=== PATIENT | male | born 1970 | race Caucasian/White ===

== ENCOUNTER 2021-07-25 07:11 | Outpatient (REF) | payer OTHER, SELFPAY ==
[2021-07-25 07:40] LABS: Hematocrit 47.4 % (42-52); Hemoglobin 16.6 g/dl (14.0-18.0); Mean Corpuscular Hemoglobin 30.9 pg (27.0-33.0); Mean Corpuscular Volume 88.3 fL (80-98); Mean Platelet Volume 9.1 fL (9.4-12.4); Platelet Count 319 X10*3/uL (160-400); Red Blood Count 5.37 X10*6/uL (4.60-5.80); Red Cell Distribution Width 12.7 % (11.0-16.0); White Blood Count 6.8 X10*3/uL (4.8-10.8)
[2021-07-25 08:12] LABS: Alanine Aminotransferase 19 U/L (0-40); Albumin Level 4.8 g/dL (3.5-5.0); Alkaline Phosphatase 60 U/L (39-117); Anion Gap 13 (12-20); Aspartate Amino Transferase 19 U/L (5-37); Bilirubin Total 1.2 mg/dL (0.0-1.0); Blood Urea Nitrogen 16 mg/dL (9-16); Calcium 9.9 mg/dL (8.4-10.2); Carbon Dioxide 28 mmol/L (22-29); Chloride 103 mmol/L (96-108); Cholesterol 219 mg/dL; Estimated Glomerular Filt Rate > 60; Glucose Fasting 135 mg/dL (60-99); HDL Cholesterol 57 mg/dL; LDL Cholesterol Calculated 130 mg/dl; Potassium 4.4 mmol/L (3.3-5.1); Sodium 140 mmol/L (135-145); Total Protein 7.2 g/dL (6.5-8.0); Triglycerides 161 mg/dL
[2021-07-25 08:35] LABS: Prostate Specific Antigen Scr 0.77 ng/mL (<0.05-4.0); TSH reflex Free T4 1.46 uIU/mL (0.32-4.0)
== END 2021-07-25 07:12 | disposition home or self-care (01) ==
LOC: HO.LAB 07:11
PROVIDERS: PCP Physician Assistant; Visit Provider Physician Assistant
DX: E78.5 Hyperlipidemia, unspecified (principal); I10 Essential (primary) hypertension; Z12.5 Encounter for screening for malignant neoplasm of prostate
CPT/HCPCS: 36415; 80053; 80061; 84153; 84443; 85027

== ENCOUNTER 2022-02-06 06:08 | Outpatient (REF) | payer OTHER, SELFPAY ==
[2022-02-06 06:56] LABS: Hematocrit 48.6 % (42.0-52.0); Hemoglobin 16.7 g/dl (14.0-18.0); Mean Corpuscular HGB Conc 34.4 g/dl (31.0-36.0); Mean Corpuscular Hemoglobin 30.4 pg (27.0-33.0); Mean Corpuscular Volume 88.4 fL (80.0-98.0); Mean Platelet Volume 9.6 fL (9.4-12.4); Platelet Count 345 X10*3/uL (160-400); Red Cell Distribution Width 12.4 % (11.0-16.0); White Blood Count 6.7 X10*3/uL (4.8-10.8)
[2022-02-06 07:10] LABS: Alanine Aminotransferase 25 U/L (0-40); Albumin Level 4.8 g/dL (3.5-5.0); Alkaline Phosphatase 58 U/L (39-117); Anion Gap 13 (12-20); Aspartate Amino Transferase 23 U/L (5-37); Bilirubin Total 0.9 mg/dL (0.0-1.0); Blood Urea Nitrogen 21 mg/dL (9-16); Calcium 10.2 mg/dL (8.4-10.2); Carbon Dioxide 29 mmol/L (22-29); Chloride 101 mmol/L (96-108); Cholesterol 198 mg/dL; Estimated Glomerular Filt Rate > 60; Glucose Fasting 126 mg/dL (60-99); HDL Cholesterol 55 mg/dL; LDL Cholesterol Calculated 118 mg/dl; Potassium 3.9 mmol/L (3.3-5.1); Sodium 139 mmol/L (135-145); Total Protein 7.3 g/dL (6.5-8.0); Triglycerides 128 mg/dL
[2022-02-06 07:26] LABS: Estimated Average Glucose 105 mg/dL; Hemoglobin A1c % 5.3 %
[2022-02-06 07:32] LABS: TSH reflex Free T4 1.32 uIU/mL (0.32-4.0)
[2022-02-06 08:18] LABS: Creatinine Urine 248.83 mg/dL; Microalbum/Creatinine Ratio Ur 128.1 ug/mg cr
== END 2022-02-06 06:09 | disposition home or self-care (01) ==
LOC: HO.LAB 06:08
PROVIDERS: PCP Physician Assistant; Visit Provider Physician Assistant
DX: R73.09 Other abnormal glucose (principal); I10 Essential (primary) hypertension; E78.5 Hyperlipidemia, unspecified
CPT/HCPCS: 36415; 80053; 80061; 82043; 83036; 84443; 85027

== ENCOUNTER 2023-07-16 05:55 | Outpatient (REF) | payer OTHER, SELFPAY ==
[2023-07-16 07:19] LABS: Hematocrit 48.4 % (42.0-52.0); Mean Corpuscular HGB Conc 35.1 g/dl (31.0-36.0); Mean Corpuscular Volume 88.2 fL (80.0-98.0); Mean Platelet Volume 9.8 fL (9.4-12.4); Platelet Count 328 X10*3/uL (160-400); Red Blood Count 5.49 X10*6/uL (4.60-5.80); Red Cell Distribution Width 12.7 % (11.0-16.0); White Blood Count 5.7 X10*3/uL (4.8-10.8)
[2023-07-16 07:35] LABS: Estimated Average Glucose 103 mg/dL; Hemoglobin A1C 152.1838 umol/L; Hemoglobin A1c % 5.2 % (<6.0)
[2023-07-16 07:42] LABS: Alanine Aminotransferase 19 U/L (0-40); Albumin Level 4.9 g/dL (3.5-5.0); Alkaline Phosphatase 56 U/L (39-117); Anion Gap 14 (12-20); Aspartate Amino Transferase 23 U/L (5-37); Bilirubin Total 0.8 mg/dL (0.0-1.0); Blood Urea Nitrogen 20 mg/dL (9-16); Calcium 10.3 mg/dL (8.4-10.2); Carbon Dioxide 29 mmol/L (22-29); Chloride 101 mmol/L (96-108); Cholesterol 198 mg/dL (<200); Estimated Glomerular Filt Rate > 60; Glucose Fasting 125 mg/dL (60-99); HDL Cholesterol 58 mg/dL (>40); LDL Cholesterol Calculated 125 mg/dL (<100); Potassium 3.7 mmol/L (3.3-5.1); Sodium 140 mmol/L (135-145); Total Protein 7.4 g/dL (6.5-8.0); Triglycerides 76 mg/dL (<150)
[2023-07-16 07:58] LABS: TSH reflex Free T4 2.11 uIU/mL (0.32-4.0)
[2023-07-16 10:32] LABS: Creatinine Urine 64.22 mg/dL; Microalbum/Creatinine Ratio Ur 141.7 ug/mg cr (<30)
== END 2023-07-16 05:56 | disposition home or self-care (01) ==
LOC: HO.LAB 05:55
PROVIDERS: PCP Physician Assistant; Visit Provider Physician Assistant
DX: I10 Essential (primary) hypertension (principal); E78.5 Hyperlipidemia, unspecified; R73.09 Other abnormal glucose
CPT/HCPCS: 36415; 80053; 80061; 82043; 82570; 83036; 84443; 85027

== ENCOUNTER 2023-08-09 07:45 | Outpatient (AMB) | payer OTHER, SELFPAY ==
--- NOTE | 2023-08-09 07:52 | MHC.PC.OV ---
Vital Signs 08/09/23 07:54 Height 5 ft 6 in Weight 192 lb BMI 31.0 BP 152/86 H Blood Pressure Location Lt brachial Position Sitting Pulse 110 H Pulse Oximetry (%) 99 Oxygen Delivery Method Room Air Intake Visit Reasons: PE Intake Note: Patient here for a physical exam Ticket Dispatcher Required: No Accompanied by: Self / Same As Patient Allergies YO Inhibitors Allergy (Unknown, Verified 08/09/23 08:05) Cough Seasonal Allergies Allergy (Unknown, Verified 08/09/23 08:05) Cough Medication List - Last Reconciled 08/09/23 by Shane Clayton PA-C amlodipine 10 mg PO DAILY fluticasone propion-salmeterol 250-50 mcg/dose (Wixela Inhub) 1 ea PO BID hydrochlorothiazide 25 mg PO DAILY simvastatin 20 mg PO DAILY Tobacco use date assessed: 08/09/23 Dental Screening Dental Screen Date: 08/09/23 Did you have a dental visit in the last 12 months?: No Did you have a dental problem in the last 6 months where you did not have access to dental care?: No Was dental information given to patient?: Patient has dentist HPI PE HPI Details Patient is a 52-year-old male here today for routine annual physical. Patient has a past medical history significant for hypertension, asthma, hyperlipidemia, impaired glucose metabolism. Concern--> reports having intermittent vertigo over the last 4 months to which he attributes to his nasal and sinus issues. Has been getting better. Also reports developing thrush over his tongue due to the use of his inhaler. .. HTN: Blood pressure elevated today in office. Does have white coat hypertension reports blood pressures at home have been 120s to 130 systolic. The [facility] denies any head discomfort, chest discomfort, dizziness or shortness of breath. .. Impaired glucose metabolism: Most recent fasting blood sugar elevated, A1c acceptable. He has started a low carbohydrate diet. .. Asthma: Patient's asthma has been well controlled with current maintenance inhaler taken once a day. He Reports his allergies do exacerbate his asthma though has been fairly well controlled with allergy medication. .. HLD: Patient's fasting lipid panel acceptable with current dose of statin therapy. Colorectal cancer screening: Colonoscopy up-to-date- Done in 2019 repeat 10 years. Vaccines: Up-to-date with COVID and tetanus vaccines, considering shingles vaccine, Considering PCV Laboratory Tests 02/06/22 07/16/23 07/16/23 06:15 06:00 06:02 RBC 5.49 Fasting Glucose 125 H Hemoglobin A1c % 5.2 Cholesterol 198 LDL Cholesterol, C alc 125 H Urine Microalbumin 319.0 91.0 PFSH Surgical History No pertinent past surgical history Family History Sister Heart attack, Onset Age: 54 Social History Housing: House Alcohol intake: current Alcohol intake frequency: holidays/special occasions only Patient Tobacco Use Status: Never used Tobacco e-Cigarette/Vaping Use: Never Used Second Hand Smoke Exposure: No service: No Current occupational status: employed Current occupation: [employer] Current occupational exposures/hazards: No Cognitive needs: No Hearing needs: No Vision needs: No Questionnaire PHQ-9 Over the last 2 weeks, how often have you been bothered by any of the following problems? 1. Little interest or pleasure in doing things: not at all 2. Feeling down, depressed, or hopeless: not at all 3. Trouble falling or staying asleep, or sleeping too much: not at all 4. Feeling tired or having little energy: not at all 5. Poor appetite or overeating: not at all 6. Feeling bad about yourself - or that you are a failure or have let yourself or your family down: not at all 7. Trouble concentrating on things, such as reading the newspaper or watching television: not at all 8. Moving or speaking so slowly that other people could have noticed. Or the opposite - being so fidgety or restless that you have been moving around a lot more than usual: not at all 9. Thoughts that you would be better off or of hurting yourself in some way: not at all Total score: 0 Depression Screening Interpretation: Negative 01416 - PHQ-9 Billing: Yes Source: Developed by Drs. Eran Finch, Elisabet Pérez, Vicente Carter and colleagues, with an educational maximo from [employer]. Thrive Questionnaire Date Thrive assessed: 08/09/23 I am a: Patient What is your living situation today?: I have a steady place to live Within the past 12 months, did the food you bought not last and you didn't have the money to get more?: Never true Within the past 12 months, did you worry whether your food would run out before you got money to buy more?: Never true Do you have trouble paying for medicines?: No Do you have trouble getting transportation to medical appointments?: No Do you have trouble paying your heating and electricity bill?: No Do you have trouble taking care of your child, family member or friend?: No Do you have trouble with day-to-day activities such as bathing, preparing meals, shopping, managing finances, etc.?: No Are you currently unemployed and looking for a job?: No Are you interested in more education?: No Please select the resources that you would like help with: None Currently or been in a relationship where the following occur: no concerns reported AUDIT C Alcohol Use Questionnaire (AUDIT-C) 1. How often do you have a drink containing alcohol?: Monthly or less 2. How many drinks containing alcohol do you have on a typical day when you are drinking?: 1 or 2 3. How often do you have six or more drinks on one occasion?: Never Total Score: 1 IRASEMA-7 AMB Questionnaire IRASEMA-7 Date IRASEMA - 7 assessed: 08/09/23 Feeling nervous, anxious, or on edge: 1 = Several days Not being able to stop or control worryin = Not at all Worrying too much about different things: 0 = Not at all Trouble relaxin = Not at all Being so restless that it is hard to sit still: 0 = Not at all Becoming easily annoyed or irritable: 0 = Not at all Feeling afraid as if something awful might happen: 0 = Not at all Total IRASEMA-7 score (0-4 normal; 5-9 mild; 10-14 moderate; 15-21 severe): 1 Source: Developed by Drs. Eran Finch, Elisabet Pérez, Vicente Carter and colleagues, with an educational maximo from [employer]. IRASEMA-7 Assessment Billing IRASEMA-7 Assessment Tool: IRASEMA-7 Assessment 60912 ACT Questionnaire In the past 4 weeks, how much of the time did your asthma keep you from getting as much done at work, school or at home?: None of the time During the past 4 weeks, how often have you had shortness of breath?: Not at all During the past 4 weeks, how often did your asthma symptoms wake you up at night or earlier than usual in the morning?: Not at all During the past 4 weeks, how often have you had to use your rescue inhaler or nebulizer medication?: Not at all How would you rate your asthma control during the past 4 weeks?: Completely controlled ACT Interpretation: Negative Score: 25 Review of Systems Const Denies body aches, Denies chills, Denies excessive sweating, Denies fatigue, Denies fever(s) and Denies headache(s) Eyes Denies blurry vision ENT Denies dysphagia, Denies vertigo, Denies dizziness, Denies headache(s), Denies hearing loss and Denies tinnitus Card Denies chest pain, Denies chest pain with activity, Denies syncope, Denies irregular heart rhythm and Denies dyspnea Resp Denies chest congestion, Denies cough, Denies hemoptysis, Denies dyspnea and Denies wheezing GI Denies abdominal pain, Denies melena, Denies hematochezia, Denies coffee ground emesis, Denies dysphagia, Denies diarrhea, Denies nausea and Denies vomiting Denies difficulty urinating, Denies dysuria, Denies urinary frequency, Denies urinary hesitancy and Denies urinary urgency Musc Denies arthralgias, Denies limited range of motion, Denies muscle cramps and Denies muscle weakness Skin/Breast Denies rash and Denies skin ulcer Neuro Denies Abnormal speech present, Denies confusion, Denies vertigo, Denies dizziness, Denies syncope, Denies headache(s), Denies memory loss and Denies seizure-like activity Psych Denies anxiety, Denies confusion, Denies depression, Denies memory loss, Denies panic attacks and Denies paranoia Endo Denies excessive sweating, Denies fatigue, Denies flushing, Denies polydipsia and Denies polyuria Aller/Immun Denies wheezing Physical exam (Primary Care) Vital Signs: Last Vital Signs Pulse 110 H 08/09/23 07:54 BP 152/86 H 08/09/23 07:54 Pulse Ox 99 08/09/23 07:54 Oxygen Delivery Method Room Air 08/09/23 07:54 BMI result Body Mass Index 31.0 BMI Assessment/Plan discussion: High Tobacco/Smoking Status: Tobacco use Status Tobacco use date assessed 08/09/23 08/09/23 08:03 Patient Tobacco Use Status Never used Tobacco 08/09/23 08:03 e-Cigarette/Vaping Use Never Used 08/09/23 08:03 PHQ-9: PHQ-9 Score PHQ-9: Total score 0 08/09/23 08:30 Depression Screening Interpretation: Negative Thrive Assessment: Date of Thrive Assessment Date Thrive assessed 08/09/23 08/09/23 08:03 Currently or been in a relationship where the following occur: no concerns reported Const General: cooperative, comfortable, no acute distress, alert and awake; No confusion Orientation/consciousness: oriented to person, oriented to place, patient oriented x3 and No confusion HENMT Head: Yes normocephalic Ears: external ears normal and TM's normal bilaterally Face and sinus: No sinus tenderness Mouth: Normal oral and palatal mucosa present and tongue normal Teeth and gingiva: dentition normal and gingiva normal Throat: Yes posterior oropharynx normal, Yes tonsils normal and Yes uvula midline Eyes Conjunctivae: conjunctivae normal Sclerae: sclerae normal Pupils: Equal, round and reactive pupils present EOM: EOMs intact bilaterally Direct Ophthalmoscopy: No no photophobia Neck Neck: Yes no lymphadenopathy, No tender and Yes no JVD Thyroid: Thyroid normal Carotids: no bruits Chest Chest palpation & inspection: no tenderness Resp Effort & Inspection: normal respiratory effort, no audible wheezes, not labored and no stridor Auscultation: no crackles, no rales, no rhonchi and no wheezes Cardio Jugular venous distension: no JVD Rate: regular rate, not bradycardic and not tachycardic Rhythm: regular rhythm Bruits: no carotid bruits Peripheral pulses: Peripheral pulses 2+ throughout GI Inspection: Yes normal to inspection, No abdominal wall ecchymosis and No visible herniation Palpation (GI): Soft to palpation, nontender, no guarding, not rigid and No hepatosplenomegaly present Auscultation: normoactive bowel sounds General: Yes no CVA tenderness Back/Spine/Pelvis Back: no CVA tenderness and No back tenderness Cervical Spine: cervical ROM normal Thoracic/Lumbar Spine: thoracic and lumbar spine normal to inspection, straight leg raise negative bilaterally, No thoraco-lumbar ROM limited and No lumbar spinal tenderness Skin Lesions: no lesions Rashes: no rashes Wounds: no wounds Neuro General: oriented to person, oriented to place, patient oriented x3, CN's II-XI intact bilaterally and No confusion Cranial nerves: Yes Equal, round and reactive pupils present and Yes Normal accommodation reflex present Cognition (Neuro): normal cognition Speech: No Abnormal speech present Gait exam (Neuro): Normal gait present Motor exam (neuro): 5/5 motor strength present throughout Extrem Right upper extremity: full ROM; no cyanosis Left upper extremity: full ROM; no cyanosis Right lower extremity: no edema Left lower extremity: no edema Psych Appearance: grossly normal Mental Status: mental status grossly normal Affect: normal affect Attitude: cooperative Thought process: Normal thought process present Office Procedures Flu Questionnaire Does the patient have a severe egg allergy?: No Immunizations flu vacc [id number] 6mos up(PF) 60 mcg(15 mcgx4)/0.5 mL IM syringe Performing Provider: Shane Clayton PA-C [facility] Documented (not given) by: ALIE Travis on 08/09/23 08:35 Reason Not Given: Patient Refused Assessment and Plan Assessment & Plan (1) Annual physical exam: Code(s): Z00.00 - Encounter for general adult medical examination without abnormal findings (2) HTN (hypertension): Code(s): I10 - Essential (primary) hypertension Qualifiers: Hypertension type: primary hypertension Qualified Code(s): I10 - Essential (primary) hypertension Plan: Patient's blood pressure elevated today in office, always been elevated when he comes into the doctor's office. He reports that home blood pressures are 120s to 130 systolic. He reports he does get very anxious coming into the doctor's office, elevation in his heart rate is well. Goal blood pressure to be below 140/90 at home (3) Impaired glucose metabolism: Code(s): R73.09 - Other abnormal glucose Plan: Patient's fasting blood sugar elevated at 126 on last lab draw. A1c acceptable Advised on weight reduction and lifestyle modifications. (4) HLD (hyperlipidemia): Code(s): E78.5 - Hyperlipidemia, unspecified Qualifiers: Hyperlipidemia type: mixed hyperlipidemia Qualified Code(s): E78.2 - Mixed hyperlipidemia Plan: Patient's fasting lipids acceptable with current dose of statin therapy. Will continue current dose of statin therapy with goal LDL to be below 130. (5) Obese: Code(s): E66.9 - Obesity, unspecified Qualifiers: Obesity type: due to excess calories Obesity classification: adult class 1 (BMI 30 - 34.9) Serious obesity comorbidity presence: without serious comorbidity Body mass index: BMI 31.0-31.9 Qualified Code(s): E66.09 - Other obesity due to excess calories; Z68.31 - Body mass index [BMI] 31.0-31.9, adult Plan: Patient has managed to lose a few lb since last office visit. Has been working on being more physically active and adapting better eating habits. He does understand his BMI still remains a little above 30. (6) IRASEMA (generalized anxiety disorder): Code(s): F41.1 - Generalized anxiety disorder Plan: Patient does have situational anxiety, has been able to manage without medication at this time. (7) Thrush: Code(s): B37.0 - Candidal stomatitis Plan: Has developed thrush from the use of his inhaler. Has been trying to manage on his own though would like treatment. (8) BPPV (benign paroxysmal positional vertigo): Code(s): H81.10 - Benign paroxysmal vertigo, unspecified ear Qualifiers: Laterality: bilateral Qualified Code(s): H81.13 - Benign paroxysmal vertigo, bilateral Plan: Reports having sinus issues, has been suffering with positional vertigo over the last 4 months. Will trial meclizine on a p.r.n. basis for dizziness. Advised about trying vestibular therapy and patient will consider. Orders: Orders Lipid Panel 11 Months I10 - Essential (primary) hypertension Complete Blood Count no Diff 11 Months I10 - Essential (primary) hypertension Influenza [id number] Immunization Today Z23 - Encounter for immunization Microalbumin, Random (w Creat) 11 Months I10 - Essential (primary) hypertension Comprehensive [place]. Panel Fast 11 Months I10 - Essential (primary) hypertension Prostate Specific Antigen Scr 11 Months I10 - Essential (primary) hypertension, Z12.5 - Encounter for screening for malignant neoplasm of prostate Medications: New fluconazole 100 mg PO DAILY 7 days 7 tabs 0RF B37.0 - Candidal stomatitis meclizine 12.5 mg PO TID 5 days PRN 15 tabs 0RF dizziness H81.10 - Benign paroxysmal vertigo, unspecified ear Coding Level of Care Code Est Pt Prev Care 40-64y([id number]) Diagnoses Annual physical exam Z00.00 Primary hypertension I10 Hypertension type: primary hypertension Impaired glucose metabolism R73.09 Mixed hyperlipidemia E78.2 Hyperlipidemia type: mixed hyperlipidemia Class 1 obesity due to excess calories without serious comorbidity with body mass index (BMI) of 31.0 to 31.9 in adult E66.09; Z68.31 Obesity type: due to excess calories Obesity classification: adult class 1 (BMI 30 - 34.9) Serious obesity comorbidity presence: without serious comorbidity Body mass index: BMI 31.0-31.9 IRASEMA (generalized anxiety disorder) F41.1 Thrush B37.0 Benign paroxysmal positional vertigo due to bilateral vestibular disorder H81.13 Laterality: bilateral Additional Codes IRASEMA-7 Assessment Billing - IRASEMA-7 Assessment Tool: IRASEMA-7 Assessment 56050 ([id number])
[2023-08-09 07:54] VITALS: BP 152/86; PULSE 110; O2SAT 99; BMI 31.0
== END 2023-08-09 08:28 | disposition home or self-care (01) ==
PROVIDERS: Visit Provider Physician Assistant
DX: Z00.00 Encounter for general adult medical examination without abnormal findings (principal); I10 Essential (primary) hypertension; R73.09 Other abnormal glucose; E78.2 Mixed hyperlipidemia; E66.09 Other obesity due to excess calories; Z68.31 Body mass index [BMI] 31.0-31.9, adult; F41.1 Generalized anxiety disorder; B37.0 Candidal stomatitis; H81.13 Benign paroxysmal vertigo, bilateral
CPT/HCPCS: 99396

== ENCOUNTER 2024-08-02 05:55 | Outpatient (REF) | payer BC, SELFPAY ==
[2024-08-02 07:33] LABS: Hematocrit 47.7 % (42.0-52.0); Mean Corpuscular HGB Conc 35.6 g/dl (31.0-36.0); Mean Corpuscular Hemoglobin 31.5 pg (27.0-33.0); Mean Corpuscular Volume 88.3 fL (80.0-98.0); Mean Platelet Volume 9.8 fL (9.4-12.4); Platelet Count 305 X10*3/uL (160-400); Red Cell Distribution Width 12.8 % (11.0-16.0); White Blood Count 5.4 X10*3/uL (4.8-10.8)
[2024-08-02 08:05] LABS: Creatinine Urine 44.74 mg/dL; Microalbum/Creatinine Ratio Ur 84.9 ug/mg cr (<30)
[2024-08-02 08:07] LABS: Alanine Aminotransferase 19 U/L (0-40); Albumin Level 4.8 g/dL (3.5-5.0); Alkaline Phosphatase 51 U/L (39-117); Anion Gap 15 (12-20); Aspartate Amino Transferase 24 U/L (5-37); Bilirubin Total 0.9 mg/dL (0.0-1.0); Blood Urea Nitrogen 17 mg/dL (9-16); Calcium 10.5 mg/dL (8.4-10.2); Carbon Dioxide 28 mmol/L (22-29); Chloride 101 mmol/L (96-108); Cholesterol 202 mg/dL (<200); Estimated Glomerular Filt Rate > 60; Glucose Fasting 120 mg/dL (60-99); HDL Cholesterol 62 mg/dL (>40); LDL Cholesterol Calculated 117 mg/dL (<100); Potassium 4.5 mmol/L (3.3-5.1); Sodium 139 mmol/L (135-145); Total Protein 7.6 g/dL (6.5-8.0); Triglycerides 116 mg/dL (<150)
[2024-08-02 08:16] LABS: Prostate Specific Antigen Scr 0.78 ng/mL (<0.05-4.0)
== END 2024-08-02 05:56 | disposition home or self-care (01) ==
LOC: HO.LAB 05:55
PROVIDERS: PCP Physician Assistant; Visit Provider Physician Assistant
DX: I10 Essential (primary) hypertension (principal); Z12.5 Encounter for screening for malignant neoplasm of prostate
CPT/HCPCS: 36415; 80053; 80061; 82043; 82570; 84153; 85027

== ENCOUNTER 2024-08-10 07:54 | Outpatient (AMB) | payer BC, SELFPAY ==
[2024-08-10 08:01] VITALS: BP 146/80; BMI 29.9
--- NOTE | 2024-08-10 08:01 | MHC.PC.OV ---
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 Accompanied by: Self / Same As Patient Allergies YO Inhibitors Allergy (Unknown, Verified 08/10/24 08:09) Cough Seasonal Allergies Allergy (Unknown, Verified 08/10/24 08:09) Cough Medication List - Last Reconciled 08/10/24 by Shane Clayton PA-C amlodipine 10 mg PO DAILY fluticasone propion-salmeterol 250-50 mcg/dose (Wixela Inhub) 1 ea PO BID hydrochlorothiazide 25 mg PO DAILY simvastatin 20 mg PO DAILY Tobacco use date assessed: 08/10/24 Dental Screening Dental Screen Date: 08/10/24 Did you have a dental visit in the last 12 months?: No Did you have a dental problem in the last 6 months where you did not have access to dental care?: No Was dental information given to patient?: Patient has dentist HPI Annual Exam HPI Details Patient is a 53-year-old male here today for routine annual physical. Patient has a past medical history significant for hypertension, asthma, hyperlipidemia, impaired glucose metabolism. Concern--> no concerns today .. HTN: Blood pressure elevated today in office. Does have white coat hypertension reports blood pressures at home have been 120s to 130 systolic. Otherwise denies any head discomfort, chest discomfort, dizziness or shortness of breath. .. Impaired glucose metabolism: Most recent fasting blood sugar elevated- 120-, A1c acceptable. He continues on low carbohydrate diet .. Asthma: Patient's asthma has been well controlled with current maintenance inhaler taken once a day. He Reports his allergies do exacerbate his asthma though has been fairly well controlled with allergy medication. .. HLD: Patient's fasting lipid panel acceptable with current dose of statin therapy. Colorectal cancer screening: Colonoscopy up-to-date- Done in 2019 repeat 10 years. Vaccines: Up-to-date with COVID and tetanus vaccines, considering shingles vaccine, Considering PCV and flu vaccine Laboratory Tests 07/16/23 07/16/23 08/02/24 06:00 06:02 06:10 RBC Fasting Glucose 125 H Hemoglobin A1c % 5.2 Cholesterol LDL Cholesterol, C alc 125 H PSA Screen Urine Microalbumin 91.0 38.0 08/02/24 06:15 RBC 5.40 Fasting Glucose 120 H Hemoglobin A1c % Cholesterol 202 H LDL Cholesterol, C alc 117 H PSA Screen 0.78 Urine Microalbumin PFSH Surgical History No pertinent past surgical history Family History Sister Heart attack, Onset Age: 54 Social History (Updated 08/10/24 @ 08:13 by Shane Clayton PA-C) Housing: House Alcohol intake: current Alcohol intake frequency: holidays/special occasions only Patient Tobacco Use Status: Never used Tobacco e-Cigarette/Vaping Use: Never Used Second Hand Smoke Exposure: No service: No Current occupational status: employed Current occupation: [employer] Current occupational exposures/hazards: No Cognitive needs: No Hearing needs: No Vision needs: No Questionnaire PHQ-9 Over the last 2 weeks, how often have you been bothered by any of the following problems? 1. Little interest or pleasure in doing things: not at all 2. Feeling down, depressed, or hopeless: not at all 3. Trouble falling or staying asleep, or sleeping too much: not at all 4. Feeling tired or having little energy: not at all 5. Poor appetite or overeating: not at all 6. Feeling bad about yourself - or that you are a failure or have let yourself or your family down: not at all 7. Trouble concentrating on things, such as reading the newspaper or watching television: not at all 8. Moving or speaking so slowly that other people could have noticed. Or the opposite - being so fidgety or restless that you have been moving around a lot more than usual: not at all 9. Thoughts that you would be better off or of hurting yourself in some way: not at all Total score: 0 Depression Screening Interpretation: Negative Depression Screening Done: Yes [id number] - PHQ-9 Billing: Yes Source: Developed by Drs. Eran Finch, Elisabet Pérez, Vicente Carter and colleagues, with an educational maximo from [employer]. Thrive Questionnaire Date Thrive assessed: 08/07/24 I am a: Patient What is your living situation today?: I choose not to answer this question Within the past 12 months, did the food you bought not last and you didn't have the money to get more?: I choose not to answer this question Within the past 12 months, did you worry whether your food would run out before you got money to buy more?: I choose not to answer this question Do you have trouble paying for medicines?: I choose not to answer this question Do you have trouble getting transportation to medical appointments?: I choose not to answer this question Do you have trouble paying your heating and electricity bill?: I choose not to answer this question Do you have trouble taking care of your child, family member or friend?: I choose not to answer this question Do you have trouble with day-to-day activities such as bathing, preparing meals, shopping, managing finances, etc.?: I choose not to answer this question Are you currently unemployed and looking for a job?: No Are you interested in more education?: I choose not to answer this question Please select the resources that you would like help with: None Currently or been in a relationship where the following occur: I choose not to answer THRIVE Score: 0 AUDIT C Alcohol Use Questionnaire (AUDIT-C) 1. How often do you have a drink containing alcohol?: 2-4 times a month 2. How many drinks containing alcohol do you have on a typical day when you are drinking?: 1 or 2 3. How often do you have six or more drinks on one occasion?: Never Total Score: 2 IRASEMA-7 AMB Questionnaire IRASEMA-7 Date IRASEMA - 7 assessed: 08/10/24 Feeling nervous, anxious, or on edge: 1 = Several days Not being able to stop or control worryin = Several days Worrying too much about different things: 1 = Several days Trouble relaxin = Several days Being so restless that it is hard to sit still: 1 = Several days Becoming easily annoyed or irritable: 0 = Not at all Feeling afraid as if something awful might happen: 0 = Not at all Total IRASEMA-7 score (0-4 normal; 5-9 mild; 10-14 moderate; 15-21 severe): 5 Source: Developed by Drs. Eran Finch, Elisabet B.W. Vicente Pérez and colleagues, with an educational maximo from [employer]. IRASEMA-7 Assessment Billing IRASEMA-7 Assessment Tool: IRASEMA-7 Assessment 62238 Review of Systems Const Denies body aches, Denies chills, Denies excessive sweating, Denies fatigue, Denies fever(s) and Denies headache(s) Eyes Denies blurry vision ENT Denies dysphagia, Denies vertigo, Denies dizziness, Denies headache(s), Denies hearing loss and Denies tinnitus Card Denies chest pain, Denies chest pain with activity, Denies syncope, Denies irregular heart rhythm and Denies dyspnea Resp Denies chest congestion, Denies cough, Denies hemoptysis, Denies dyspnea and Denies wheezing GI Denies abdominal pain, Denies melena, Denies hematochezia, Denies coffee ground emesis, Denies dysphagia, Denies diarrhea, Denies nausea and Denies vomiting Denies difficulty urinating, Denies dysuria, Denies urinary frequency, Denies urinary hesitancy and Denies urinary urgency Musc Denies arthralgias, Denies limited range of motion, Denies muscle cramps and Denies muscle weakness Skin/Breast Denies rash and Denies skin ulcer Neuro Denies Abnormal speech present, Denies confusion, Denies vertigo, Denies dizziness, Denies syncope, Denies headache(s), Denies memory loss and Denies seizure-like activity Psych Denies anxiety, Denies confusion, Denies depression, Denies memory loss, Denies panic attacks and Denies paranoia Endo Denies excessive sweating, Denies fatigue, Denies flushing, Denies polydipsia and Denies polyuria Aller/Immun Denies wheezing Physical exam (Primary Care) Vital Signs: Last Vital Signs BP 146/80 H 08/10/24 08:01 BMI result Body Mass Index 29.9 Tobacco/Smoking Status: Tobacco use Status Tobacco use date assessed 08/10/24 08/10/24 08:06 Patient Tobacco Use Status Never used Tobacco 08/10/24 08:06 e-Cigarette/Vaping Use Never Used 08/10/24 08:06 PHQ-9: PHQ-9 Score PHQ-9: Total score 0 08/10/24 08:06 Depression Screening Interpretation: Negative Thrive Assessment: Date of Thrive Assessment Date Thrive assessed 08/07/24 08/10/24 08:06 Currently or been in a relationship where the following occur: I choose not to answer Const General: cooperative, comfortable, no acute distress, alert and awake; No confusion Orientation/consciousness: oriented to person, oriented to place, patient oriented x3 and No confusion HENMT Head: Yes normocephalic Ears: external ears normal and TM's normal bilaterally Face and sinus: No sinus tenderness Mouth: Normal oral and palatal mucosa present and tongue normal Teeth and gingiva: dentition normal and gingiva normal Throat: Yes posterior oropharynx normal, Yes tonsils normal and Yes uvula midline Eyes Conjunctivae: conjunctivae normal Sclerae: sclerae normal Pupils: Equal, round and reactive pupils present EOM: EOMs intact bilaterally Direct Ophthalmoscopy: No no photophobia Neck Neck: Yes no lymphadenopathy, No tender and Yes no JVD Thyroid: Thyroid normal Carotids: no bruits Chest Chest palpation & inspection: no tenderness Resp Effort & Inspection: normal respiratory effort, no audible wheezes, not labored and no stridor Auscultation: no crackles, no rales, no rhonchi and no wheezes Cardio Jugular venous distension: no JVD Rate: regular rate, not bradycardic and not tachycardic Rhythm: regular rhythm Bruits: no carotid bruits Peripheral pulses: Peripheral pulses 2+ throughout GI Inspection: Yes normal to inspection, No abdominal wall ecchymosis and No visible herniation Palpation (GI): Soft to palpation, nontender, no guarding, not rigid and No hepatosplenomegaly present Auscultation: normoactive bowel sounds General: Yes no CVA tenderness Back/Spine/Pelvis Back: no CVA tenderness and No back tenderness Cervical Spine: cervical ROM normal Thoracic/Lumbar Spine: thoracic and lumbar spine normal to inspection, straight leg raise negative bilaterally, No thoraco-lumbar ROM limited and No lumbar spinal tenderness Skin Lesions: no lesions Rashes: no rashes Wounds: no wounds Neuro General: oriented to person, oriented to place, patient oriented x3, CN's II-XI intact bilaterally and No confusion Cranial nerves: Yes Equal, round and reactive pupils present and Yes Normal accommodation reflex present Cognition (Neuro): normal cognition Speech: No Abnormal speech present Gait exam (Neuro): Normal gait present Motor exam (neuro): 5/5 motor strength present throughout Extrem Right upper extremity: full ROM; no cyanosis Left upper extremity: full ROM; no cyanosis Right lower extremity: no edema Left lower extremity: no edema Psych Appearance: grossly normal Mental Status: mental status grossly normal Affect: normal affect Attitude: cooperative Thought process: Normal thought process present Office Procedures Flu Questionnaire Does the patient have a severe egg allergy?: No Immunizations Fluarix Triv [id number] (PF) 45 mcg (15 mcg x 3)/0.5 mL IM syringe Performing Provider: Shane Clayton PA-C [place] [place] [facility] Documented (not given) by: ALIE Travis on 08/10/24 08:07 Reason Not Given: Patient Refused Coding Level of Care Code Est Pt Prev Care 40-64y(55099) Diagnoses Annual physical exam Z00.00 Primary hypertension I10 Hypertension type: primary hypertension Impaired glucose metabolism R73.09 IRASEMA (generalized anxiety disorder) F41.1 Mixed hyperlipidemia E78.2 Hyperlipidemia type: mixed hyperlipidemia Additional Codes IRASEMA-7 Assessment Billing - IRASEMA-7 Assessment Tool: IRASEMA-7 Assessment 38608 ([id number]) Assessment & Plan Assessment & Plan (1) Annual physical exam: Code(s): Z00.00 - Encounter for general adult medical examination without abnormal findings Category: Medical Plan: As per HPI (2) HTN (hypertension): Code(s): I10 - Essential (primary) hypertension Category: Medical Qualifiers: Hypertension type: primary hypertension Qualified Code(s): I10 - Essential (primary) hypertension Plan: Blood pressure slightly elevated today in office. Reports that home blood pressures are stable. He seems to have a element of white coat hypertension. Advised to continue monitoring blood pressure at home with goal blood pressure to be below 140/90 (3) Impaired glucose metabolism: Code(s): R73.09 - Other abnormal glucose Category: Medical Plan: Patient's most recent fasting blood sugar at 120 which has improved from 12/02. Has had chronic history of impaired fasting glucose though A1cs have been stable. He will continue on low carb high-protein diet per (4) IRASEMA (generalized anxiety disorder): Code(s): F41.1 - Generalized anxiety disorder Category: Medical Plan: Patient's IRASEMA-7 score positive for mild anxiety.. Patient does suffer with anxiety disorder to which he takes propranolol p.r.n. basis for high potency of anxiety which has worked wonderfully for him. (5) HLD (hyperlipidemia): Code(s): E78.5 - Hyperlipidemia, unspecified Category: Medical Qualifiers: Hyperlipidemia type: mixed hyperlipidemia Qualified Code(s): E78.2 - Mixed hyperlipidemia Plan: Patient's most recent lipid panel showing acceptable total cholesterol and LDL. Does understand his cholesterol panel is borderline high. He will continue working on lifestyle and dietary modifications to reduce his cholesterol. Orders: Orders Hemoglobin A1c Today R73.09 - Other abnormal glucose Microalbumin, Random (w Creat) Today I10 - Essential (primary) hypertension Prostate Specific Antigen Scr Today E78.2 - Mixed hyperlipidemia, Z12.5 - Encounter for screening for malignant neoplasm of prostate Influenza [id number] Immunization Today Z23 - Encounter for immunization Comprehensive [place]. Panel Fast Today R73.09 - Other abnormal glucose Complete Blood Count no Diff Today R73.09 - Other abnormal glucose Lipid Panel Today E78.2 - Mixed hyperlipidemia Medications: New propranolol 10 mg PO BID 7 days PRN 14 tabs 0RF Anxious symptoms F41.1 - Generalized anxiety disorder Patient Instructions: Goal: Blood pressure to be below 140/90 Barriers: Adherence to physical activity and healthy eating habits
== END 2024-08-10 08:29 | disposition home or self-care (01) ==
PROVIDERS: PCP Physician Assistant; Visit Provider Physician Assistant
DX: Z00.00 Encounter for general adult medical examination without abnormal findings (principal); I10 Essential (primary) hypertension; R73.09 Other abnormal glucose; F41.1 Generalized anxiety disorder; E78.2 Mixed hyperlipidemia; Z23 Encounter for immunization

== ENCOUNTER → 2024-08-10 07:54 | Outpatient (BNVA) | payer BC, SELFPAY | PROVIDERS: PCP Physician Assistant; Visit Provider Physician Assistant | DX: Z00.00 Encounter for general adult medical examination without abnormal findings (principal); I10 Essential (primary) hypertension; R73.09 Other abnormal glucose; F41.1 Generalized anxiety disorder; E78.2 Mixed hyperlipidemia; Z28.21 Immunization not carried out because of patient refusal | CPT/HCPCS: 90471; 96127 ==

== ENCOUNTER 2025-08-15 06:09 | Outpatient (REF) | payer BC, SELFPAY ==
[2025-08-15 07:46] LABS: Hematocrit 46.4 % (42.0-52.0); Hemoglobin 16.0 g/dl (14.0-18.0); Mean Corpuscular HGB Conc 34.5 g/dl (31.0-36.0); Mean Corpuscular Hemoglobin 31.1 pg (27.0-33.0); Mean Corpuscular Volume 90.1 fL (80.0-98.0); NRBC Abs Auto 0.000 X10*3/uL (0.0-0.012); NRBC Pct Auto 0.0 /100WBC (0.0-0.2); Platelet Count 279 X10*3/uL (160-400); Red Blood Count 5.15 X10*6/uL (4.60-5.80); White Blood Count 5.0 X10*3/uL (4.8-10.8)
[2025-08-15 08:18] LABS: Alanine Aminotransferase 29 U/L (0-40); Albumin Level 4.7 g/dL (3.5-5.0); Alkaline Phosphatase 46 U/L (39-117); Anion Gap 10 (12-20); Aspartate Amino Transferase 26 U/L (5-37); Blood Urea Nitrogen 20 mg/dL (9-16); Calcium 9.6 mg/dL (8.4-10.2); Carbon Dioxide 29 mmol/L (22-29); Chloride 104 mmol/L (96-108); Cholesterol 187 mg/dL (<200); Estimated Glomerular Filt Rate > 60; HDL Cholesterol 61 mg/dL (>40); Potassium 4.4 mmol/L (3.3-5.1); Sodium 139 mmol/L (135-145); Total Protein 6.9 g/dL (6.5-8.0); Triglycerides 72 mg/dL (<150)
[2025-08-15 08:26] LABS: Microalbum/Creatinine Ratio Ur 87.2 ug/mg cr (<30)
== END 2025-08-15 06:10 | disposition home or self-care (01) ==
LOC: HO.LAB 06:09
PROVIDERS: PCP Physician Assistant; Visit Provider Physician Assistant
DX: I10 Essential (primary) hypertension (principal); E78.2 Mixed hyperlipidemia; R73.09 Other abnormal glucose; Z12.5 Encounter for screening for malignant neoplasm of prostate
CPT/HCPCS: 36415; 80053; 80061; 82043; 82570; 83036; 84153; 85027

== ENCOUNTER 2025-08-21 07:43 | Outpatient (AMB) | payer BC, SELFPAY ==
--- NOTE | 2025-08-21 07:59 | MHC.PC.OV ---
Vital Signs 08/21/25 08:00 Height 5 ft 6 in Weight 167 lb BMI 27.0 BP 162/80 H Blood Pressure Location Rt brachial Position Sitting Pulse 120 H Pulse Source Pulse Oximeter Pulse Oximetry (%) 98 Oxygen Delivery Method Room Air Intake Visit Reasons: Annual Exam Allergies YO Inhibitors Allergy (Unknown, Verified 08/21/25 08:05) Cough Seasonal Allergies Allergy (Unknown, Verified 08/21/25 08:05) Cough Medication List - Last Reconciled 08/21/25 by Shane Clayton PA-C amlodipine 10 mg PO DAILY fluticasone propion-salmeterol 250-50 mcg/dose (Wixela Inhub) 1 ea PO BID hydrochlorothiazide 25 mg PO DAILY propranolol 10 mg PO BID PRN 7 days simvastatin 20 mg PO DAILY Tobacco use date assessed: 08/21/25 Dental Screening Dental Screen Date: 08/21/25 Did you have a dental visit in the last 12 months?: Yes Did you have a dental problem in the last 6 months where you did not have access to dental care?: No Was dental information given to patient?: Patient has dentist HPI Annual Exam HPI Details Patient is a 54 year-old male here today for routine annual physical. Patient has a past medical history significant for hypertension, asthma, hyperlipidemia, impaired glucose metabolism. Concern--> The dizziness is associated with head movements and changes in altitude, suggesting a possible ear-related issue. It occurs several times a week and is sometimes accompanied by discomfort at the back of the head. The patient underwent sinus surgery for polyps 15 years ago, which may be relevant to the current symptoms. The right shoulder pain started three months ago after a work-related incident involving lifting a tailgate. The pain is localized to the rotator cuff and worsens with overuse, though range of motion remains unaffected. The patient has not pursued formal treatment but has reported the injury at work. .. HTN: Blood pressure elevated today in office. Does have white coat hypertension reports blood pressures at home have been 120s to 130 systolic. Otherwise denies any head discomfort, chest discomfort, dizziness or shortness of breath. .. Impaired glucose metabolism: Most recent fasting blood sugar improved at 111 from 120-. A1c acceptable. He continues on low carbohydrate diet .. Asthma: Patient's asthma has been well controlled with current maintenance inhaler taken once a day. He Reports his allergies do exacerbate his asthma though has been fairly well controlled with allergy medication. .. HLD: Patient's fasting lipid panel acceptable with current dose of statin therapy. Colorectal cancer screening: Colonoscopy up-to-date- Done in 2019 repeat 10 years. Vaccines: Up-to-date with COVID and tetanus vaccines, considering shingles vaccine, Considering PCV and decline flu vaccine Laboratory Tests 07/16/23 07/16/23 08/02/24 06:00 06:02 06:10 RBC Fasting Glucose 125 H Hemoglobin A1c % 5.2 Cholesterol LDL Cholesterol, C alc 125 H PSA Screen Urine Microalbumin 91.0 38.0 08/02/24 06:15 RBC 5.40 Fasting Glucose 120 H Hemoglobin A1c % Cholesterol 202 H LDL Cholesterol, C alc 117 H PSA Screen 0.78 Urine Microalbumin Laboratory Tests 08/02/24 08/02/24 08/15/25 06:10 06:15 06:19 RBC Fasting Glucose 120 H Hemoglobin A1c % Cholesterol 202 H LDL Cholesterol, C alc 117 H PSA Screen Urine Microalbumin 38.0 57.0 08/15/25 06:24 RBC 5.15 Fasting Glucose 111 H Hemoglobin A1c % 5.2 Cholesterol 187 LDL Cholesterol, C alc 112 H PSA Screen 0.67 Urine Microalbumin PFSH Surgical History No pertinent past surgical history Family History Sister Heart attack, Onset Age: 54 Social History Housing: House Alcohol intake: current Alcohol intake frequency: holidays/special occasions only Patient Tobacco Use Status: Never used Tobacco Tobacco use type: Cigarette e-Cigarette/Vaping Use: Never Used Second Hand Smoke Exposure: No service: No Current occupational status: employed Current occupation: [employer] Current occupational exposures/hazards: No Cognitive needs: No Hearing needs: No Vision needs: No Questionnaire PHQ-9 Over the last 2 weeks, how often have you been bothered by any of the following problems? 1. Little interest or pleasure in doing things: not at all 2. Feeling down, depressed, or hopeless: not at all 3. Trouble falling or staying asleep, or sleeping too much: not at all 4. Feeling tired or having little energy: not at all 5. Poor appetite or overeating: not at all 6. Feeling bad about yourself - or that you are a failure or have let yourself or your family down: not at all 7. Trouble concentrating on things, such as reading the newspaper or watching television: not at all 8. Moving or speaking so slowly that other people could have noticed. Or the opposite - being so fidgety or restless that you have been moving around a lot more than usual: not at all 9. Thoughts that you would be better off or of hurting yourself in some way: not at all Total score: 0 Depression Screening Interpretation: Negative Depression Screening Done: Yes 71865 - PHQ-9 Billing: Yes Source: Developed by Drs. Eran Finch, Elisabet Pérez, Vicente Carter and colleagues, with an educational maximo from [employer]. Thrive Questionnaire Date Thrive assessed: 08/20/25 I am a: Patient What is your living situation today?: I have a steady place to live Within the past 12 months, did the food you bought not last and you didn't have the money to get more?: I choose not to answer this question Within the past 12 months, did you worry whether your food would run out before you got money to buy more?: I choose not to answer this question Do you have trouble paying for medicines?: I choose not to answer this question Do you have trouble getting transportation to medical appointments?: I choose not to answer this question Do you have trouble paying your heating and electricity bill?: I choose not to answer this question Do you have trouble taking care of your child, family member or friend?: I choose not to answer this question Do you have trouble with day-to-day activities such as bathing, preparing meals, shopping, managing finances, etc.?: I choose not to answer this question Are you currently unemployed and looking for a job?: No Are you interested in more education?: No Please select the resources that you would like help with: None Currently or been in a relationship where the following occur: No concerns reported THRIVE Score: 0 AUDIT C Alcohol Use Questionnaire (AUDIT-C) 1. How often do you have a drink containing alcohol?: Never 3. How often do you have six or more drinks on one occasion?: Never Total Score: 0 IRASEMA-7 AMB Questionnaire IRASEMA-7 Date IRASEMA - 7 assessed: 08/21/25 Feeling nervous, anxious, or on edge: 1 = Several days Not being able to stop or control worryin = Several days Worrying too much about different things: 1 = Several days Trouble relaxin = Several days Being so restless that it is hard to sit still: 1 = Several days Becoming easily annoyed or irritable: 0 = Not at all Feeling afraid as if something awful might happen: 1 = Several days Total IRASEMA-7 score (0-4 normal; 5-9 mild; 10-14 moderate; 15-21 severe): 6 Source: Developed by Drs. Eran Finch, Elisabet Pérez, Vicente Carter and colleagues, with an educational maximo from [employer]. IRASEMA-7 Assessment Billing IRASEMA-7 Assessment Tool: IRASEMA-7 Assessment 94536 Review of Systems Const Denies body aches, Denies chills, Denies excessive sweating, Denies fatigue, Denies fever(s) and Denies headache(s) Eyes Denies blurry vision ENT Details: + posterior head pain Denies dysphagia, Denies vertigo, Reports dizziness, Denies headache(s), Denies hearing loss and Denies tinnitus Card Denies chest pain, Denies chest pain with activity, Denies syncope, Denies irregular heart rhythm and Denies dyspnea Resp Denies chest congestion, Denies cough, Denies hemoptysis, Denies dyspnea and Denies wheezing GI Denies abdominal pain, Denies melena, Denies hematochezia, Denies coffee ground emesis, Denies dysphagia, Denies diarrhea, Denies nausea and Denies vomiting Denies difficulty urinating, Denies dysuria, Denies urinary frequency, Denies urinary hesitancy and Denies urinary urgency Musc Denies arthralgias, Denies limited range of motion, Denies muscle cramps and Denies muscle weakness Skin/Breast Denies rash and Denies skin ulcer Neuro Denies Abnormal speech present, Denies confusion, Denies vertigo, Reports dizziness, Denies syncope, Denies headache(s), Denies memory loss and Denies seizure-like activity Psych Denies anxiety, Denies confusion, Denies depression, Denies memory loss, Denies panic attacks and Denies paranoia Endo Denies excessive sweating, Denies fatigue, Denies flushing, Denies polydipsia and Denies polyuria Aller/Immun Denies wheezing Physical exam (Primary Care) Vital Signs: Last Vital Signs Pulse 120 H 08/21/25 08:00 BP 162/80 H 08/21/25 08:00 Pulse Ox 98 08/21/25 08:00 Oxygen Delivery Method Room Air 08/21/25 08:00 BMI result Body Mass Index 27.0 Tobacco/Smoking Status: Tobacco use Status Tobacco use date assessed 08/21/25 08/21/25 08:04 Patient Tobacco Use Status Never used Tobacco 08/21/25 08:04 Tobacco use type Cigarette 08/21/25 08:04 e-Cigarette/Vaping Use Never Used 08/21/25 08:04 PHQ-9: PHQ-9 Score PHQ-9: Total score 0 08/21/25 08:04 Depression Screening Interpretation: Negative Thrive Assessment: Date of Thrive Assessment Date Thrive assessed 08/20/25 08/21/25 08:04 Currently or been in a relationship where the following occur: No concerns reported Const General: cooperative, comfortable, no acute distress, alert and awake; No confusion Orientation/consciousness: oriented to person, oriented to place, patient oriented x3 and No confusion HENMT Head: Yes normocephalic Ears: external ears normal and TM's normal bilaterally Face and sinus: No sinus tenderness Mouth: Normal oral and palatal mucosa present and tongue normal Teeth and gingiva: dentition normal and gingiva normal Throat: Yes posterior oropharynx normal, Yes tonsils normal and Yes uvula midline Eyes Conjunctivae: conjunctivae normal Sclerae: sclerae normal Pupils: Equal, round and reactive pupils present EOM: EOMs intact bilaterally Direct Ophthalmoscopy: No no photophobia Neck Neck: Yes no lymphadenopathy, No tender and Yes no JVD Thyroid: Thyroid normal Carotids: no bruits Chest Chest palpation & inspection: no tenderness Resp Effort & Inspection: normal respiratory effort, no audible wheezes, not labored and no stridor Auscultation: no crackles, no rales, no rhonchi and no wheezes Cardio Jugular venous distension: no JVD Rate: regular rate, not bradycardic and not tachycardic Rhythm: regular rhythm Bruits: no carotid bruits Peripheral pulses: Peripheral pulses 2+ throughout GI Inspection: Yes normal to inspection, No abdominal wall ecchymosis and No visible herniation Palpation (GI): Soft to palpation, nontender, no guarding, not rigid and No hepatosplenomegaly present Auscultation: normoactive bowel sounds General: Yes no CVA tenderness Back/Spine/Pelvis Back: no CVA tenderness and No back tenderness Cervical Spine: cervical ROM normal Thoracic/Lumbar Spine: thoracic and lumbar spine normal to inspection, straight leg raise negative bilaterally, No thoraco-lumbar ROM limited and No lumbar spinal tenderness Skin Lesions: no lesions Rashes: no rashes Wounds: no wounds Neuro General: oriented to person, oriented to place, patient oriented x3, CN's II-XI intact bilaterally and No confusion Cranial nerves: Yes Equal, round and reactive pupils present and Yes Normal accommodation reflex present Cognition (Neuro): normal cognition Speech: No Abnormal speech present Gait exam (Neuro): Normal gait present Motor exam (neuro): 5/5 motor strength present throughout Extrem Right upper extremity: full ROM; no cyanosis Left upper extremity: full ROM; no cyanosis Right lower extremity: no edema Left lower extremity: no edema Psych Appearance: grossly normal Mental Status: mental status grossly normal Affect: normal affect Attitude: cooperative Thought process: Normal thought process present Coding Level of Care Code Est Pt Prev Care 40-64y(41560) Diagnoses Annual physical exam Z00.00 Primary hypertension I10 Hypertension type: primary hypertension Impaired glucose metabolism R73.09 IRASEMA (generalized anxiety disorder) F41.1 Mixed hyperlipidemia E78.2 Hyperlipidemia type: mixed hyperlipidemia Nonspecific dizziness R42 Right shoulder tendonitis M75.81 Additional Codes IRASEMA-7 Assessment Billing - IRASEMA-7 Assessment Tool: IRASEMA-7 Assessment 10746 ([id number]) PHQ-9 - 78395 - PHQ-9 Billing: Yes ([id number]) Assessment & Plan Assessment & Plan (1) Annual physical exam: Code(s): Z00.00 - Encounter for general adult medical examination without abnormal findings Category: Medical Plan: As per HPI (2) HTN (hypertension): Code(s): I10 - Essential (primary) hypertension Category: Medical Qualifiers: Hypertension type: primary hypertension Qualified Code(s): I10 - Essential (primary) hypertension Plan: Blood pressure slightly elevated today in office. He has not been regularly checking his blood pressure and promises to start doing so. He seems to have a element of white coat hypertension. Advised to continue monitoring blood pressure at home with goal blood pressure to be below 140/90 (3) Impaired glucose metabolism: Code(s): R73.09 - Other abnormal glucose Category: Medical Plan: Patient's most recent fasting blood sugar improved at 111 from 120. A1c appropriate.. Has had chronic history of impaired fasting glucose though A1cs have been stable. He will continue on low carb high-protein diet per (4) IRASEMA (generalized anxiety disorder): Code(s): F41.1 - Generalized anxiety disorder Category: Medical Plan: Patient's IRASEMA-7 score positive for mild anxiety.. Patient does suffer with anxiety disorder to which he takes propranolol p.r.n. basis for high potency of anxiety which has worked wonderfully for him. (5) HLD (hyperlipidemia): Code(s): E78.5 - Hyperlipidemia, unspecified Category: Medical Qualifiers: Hyperlipidemia type: mixed hyperlipidemia Qualified Code(s): E78.2 - Mixed hyperlipidemia Plan: Patient's most recent lipid panel showing acceptable total cholesterol and LDL. Does understand his cholesterol panel is borderline high. He will continue working on lifestyle and dietary modifications to reduce his cholesterol. (6) Nonspecific dizziness: Code(s): R42 - Dizziness and giddiness Category: Medical Plan: I discussed with the patient the potential causes of his dizziness, including ear-related issues and the possibility of a cerebellar stroke, which we aim to rule out with an MRI of the brain. We also talked about the importance of monitoring blood pressure to determine if it contributes to his symptoms. An MRI of the brain will be conducted to explore the cause of dizziness, focusing on excluding cerebellar stroke or other neurological conditions (7) Right shoulder tendonitis: Code(s): M75.81 - Other shoulder lesions, right shoulder Category: Medical Plan: For right shoulder pain, an x-ray is advised to assess the joint, followed by physical therapy to enhance function and reduce pain. An MRI may be considered if symptoms persist to check for soft tissue damage or partial tears. Orders: Orders XR shoulder RT min 2V Today M75.81 - Other shoulder lesions, right shoulder PT Evaluation and Treatment Today M75.81 - Other shoulder lesions, right shoulder MR head/brain wo con Today R42 - Dizziness and giddiness Lipid Panel Today E78.2 - Mixed hyperlipidemia Complete Blood Count no Diff Today E78.2 - Mixed hyperlipidemia Microalbumin, Random (w Creat) Today I10 - Essential (primary) hypertension Comprehensive [place]. Panel Fast Today I10 - Essential (primary) hypertension Prostate Specific Antigen Scr Today E78.2 - Mixed hyperlipidemia, Z12.5 - Encounter for screening for malignant neoplasm of prostate Patient Instructions: Goal: Blood pressure to be below 140/90 and above 100/60. LDL to remain below 130 Barriers: Adherence to physical activity and healthy eating habits
[2025-08-21 08:00] VITALS: BP 162/80; PULSE 120; O2SAT 98; BMI 27.0
== END 2025-08-21 08:32 | disposition home or self-care (01) ==
LOC: HO.HMCH 07:43
PROVIDERS: PCP Physician Assistant; Visit Provider Physician Assistant
DX: Z00.00 Encounter for general adult medical examination without abnormal findings (principal); I10 Essential (primary) hypertension; R73.09 Other abnormal glucose; F41.1 Generalized anxiety disorder; E78.2 Mixed hyperlipidemia; R42 Dizziness and giddiness; M75.81 Other shoulder lesions, right shoulder

== ENCOUNTER → 2025-08-21 07:43 | Outpatient (BNVA) | payer BC, SELFPAY | PROVIDERS: PCP Physician Assistant; Visit Provider Physician Assistant | DX: Z00.00 Encounter for general adult medical examination without abnormal findings (principal); I10 Essential (primary) hypertension; J45.909 Unspecified asthma, uncomplicated; R42 Dizziness and giddiness; M25.511 Pain in right shoulder; R73.09 Other abnormal glucose; F41.1 Generalized anxiety disorder; E78.2 Mixed hyperlipidemia; M75.81 Other shoulder lesions, right shoulder | CPT/HCPCS: 96127 ==

== ENCOUNTER 2025-08-31 13:46 | Outpatient (REF) | payer BC, SELFPAY ==
--- NOTE | ~2025-08-31 | XR_ITS ---
EXAMINATION: XR SHOULDER, RIGHT CLINICAL INFORMATION: M75.81 - Other shoulder lesions, right shoulder COMPARISON: Correlated to chest x-ray dated June 15, 2016 TECHNIQUE: AP external rotation, Grashey, scapular Y, and axillary views of the right shoulder. FINDINGS: Degenerative changes in the acromioclavicular joint and greater tuberosity of the right humerus. Asymmetric joint space narrowing at from the humeral and glenohumeral joints. No acute cortical disruption or malalignment. No lytic or blastic lesions. XR/XR shoulder RT min 2V IMPRESSION: Moderate degenerative changes without acute fracture or dislocation, right shoulder. Electronically signed by: Michael Araya MD 08/31/2025 02:04 PM EDT
== END 2025-08-31 13:47 | disposition home or self-care (01) ==
LOC: HO.XRAY 13:46
PROVIDERS: PCP Physician Assistant; Visit Provider Physician Assistant
DX: M75.81 Other shoulder lesions, right shoulder (principal)
CPT/HCPCS: 73030

== ENCOUNTER → 2025-08-31 13:50 | Outpatient (BNV) | payer BC, SELFPAY | PROVIDERS: PCP Physician Assistant; Visit Provider Radiology Diagnostic Radiology | DX: M75.81 Other shoulder lesions, right shoulder (principal) | CPT/HCPCS: 73030 ==

== ENCOUNTER 2025-09-16 08:26 | Outpatient (REF) | payer BC, SELFPAY ==
--- NOTE | ~2025-09-16 | MR_ITS ---
EXAMINATION: MR BRAIN WITHOUT CONTRAST CLINICAL INFORMATION: R 42. Dizziness and giddiness. COMPARISON: None available. TECHNIQUE: MRI of the brain was obtained using routine sequences without contrast. FINDINGS: No restricted diffusion. No acute intracranial hemorrhage, mass effect, midline shift, hydrocephalus or herniation. [place]-white matter differentiation is normal. Prominence of the extra-axial CSF spaces cerebral sulci, bifrontal bitemporal lobes. Bilateral, multifocal, subcortical deep white matter hyperintense T2 FLAIR signal foci involving centrum semiovale and lange radiata. Sellar/suprasellar region demonstrated no CSF prominence, intrasellar likely related to diaphragmatic sella insufficiency. Craniocervical junction is intact with 4 mm descensus of the cerebellar tonsils below foramen magnum. Flow-void signal within the main cerebral vessels is normal. There is an extensive polypoid pattern paranasal sinus mucosal thickening and polypoid signal abnormality in the nasal cavity. MR/MR head/brain wo con IMPRESSION: Nonspecific white matter T2 FLAIR signal. Bifrontal bitemporal lobe atrophy. Polypoid pattern paranasal sinus disease. Recommend direct inspection. Low-lying cerebellar tonsils Electronically signed by: Michael Araya MD 09/17/2025 07:00 AM EST
== END 2025-09-16 08:27 | disposition home or self-care (01) ==
LOC: HO.MRI 08:26
PROVIDERS: Visit Provider Physician Assistant
DX: R42 Dizziness and giddiness (principal)
CPT/HCPCS: 70551

== ENCOUNTER → 2025-09-16 08:33 | Outpatient (BNV) | payer BC, SELFPAY | PROVIDERS: Visit Provider Radiology Diagnostic Radiology | DX: G31.9 Degenerative disease of nervous system, unspecified (principal); J34.89 Other specified disorders of nose and nasal sinuses | CPT/HCPCS: 70551 ==